=== PATIENT | male | born 1950 | race Two or more races ===

== ENCOUNTER 2017-03-19 05:53 | Inpatient (IN) | payer OTHER ==
[2017-03-19] VITALS (12 sets, daily range): BP systolic 116–155; BP diastolic 66–83
[~2017-03-19] VITALS: Ht 170.2 cm; Wt 81.6 kg
[2017-03-19] MEDS ORDERED: LR 1000ml 1,000 ML IVLG SCH (06:28)
--- NOTE | 2017-03-19 06:29 | Anethesia Preoperative Eval ---
Anesthesia Pre-op PMH/ROS General Date of Evaluation: Mar 19, 2017 Time of Evaluation: 07:26 Anesthesiologist: Dee ASA Score: ASA 2 Mallampati Score Class I : Soft palate, uvula, fauces, pillars visible Class II: Soft palate, uvula, fauces visible Class III: Soft palate, base of uvula visible Class IV: Only hard plate visible Mallampati Classification: Class II Surgeon: Chava Diagnosis: Neck Pain Surgical Procedure: ACDF C4-5, C5-6, C6-7 Anesthesia History: none Family History: no anesthesia problems Allergies: Coded Allergies: No Known Allergies (Unverified , 03/18/17) Medications: see eMAR Past Medical History Gastrointestinal/Genitourinary: Reports: other - Renolithiasis PSxH Narrative: Spine SX Anesthesia Pre-op Phys. Exam Physician Exam Last Vital Signs Date Time Temp Pulse Resp B/P (MAP) Pulse Ox O2 Delivery O2 Flow Rate FiO2 03/19/17 06:25 97.3 64 18 118/73 98 Room Air Constitutional: NAD Neurologic: CN 2-12 intact Cardiovascular: RRR Respiratory: CTA Gastrointestinal: S/NT/ND Airway Exam Mallampati Score: Class II MO: full ROM: limited Teeth: intact Anesthesia Pre-op A/P Risk Assessment & Plan Assessment: ASA 2 Plan: GA, BIS, GlideScope Status Change Before Surgery: No Pre-Antibiotics Dru Grams Ancef IV Given Within 1 Hr of Incision: Yes Time Given: 07:46 Kenneth Price MD Mar 19, 2017 06:29
[2017-03-19] MEDS ORDERED: Midazolam 2mg/2ml Inj IVP PRN (06:30)
[2017-03-19] MEDS ORDERED: LORazepam Inj 2mg/ml 1ml IV PRN (06:30)
[2017-03-19] MEDS ORDERED: DiphenhydrAMINE 50mg/ml Inj IVP PRN (06:30)
[2017-03-19] MEDS ORDERED: Ketorolac 60mg Inj IV PRN (06:30)
[2017-03-19] MEDS ORDERED: Ketorolac 30mg Inj IV PRN (06:30)
[2017-03-19] MEDS ORDERED: Atropine Inj 1mg/10ml Syr IV PRN (06:30)
[2017-03-19] MEDS ORDERED: Hydromorphone 0.5mg/0.5ml inj IVP PRN (06:30)
[2017-03-19] MEDS ORDERED: Norco 5mg/325mg tab ORAL PRN (06:30)
[2017-03-19] MEDS ORDERED: oxyCODONE HCL/Acetaminophen 5/325mg ORAL PRN (06:30)
[2017-03-19] MEDS ORDERED: HYDROcodone/Acetamin 7.5/325 tab ORAL PRN (06:30)
[2017-03-19] MEDS ORDERED: Labetalol 5mg/ml 20ml vial IV PRN (06:30)
[2017-03-19] MEDS ORDERED: Acetaminophen (Non formulary) 100 ML IV ONE (06:30)
[2017-03-19] MEDS ORDERED: fentaNYL 100 mcg/2 mL IV PRN (06:30)
[2017-03-19] MEDS ORDERED: NKM (06:32)
[2017-03-19] MEDS ORDERED: Thrombin 5000 units TOPIC ONE (07:15)
[2017-03-19] MEDS ORDERED: Thrombin 5000 units spray kit TOPIC ONE (07:15)
[2017-03-19] MEDS ORDERED: Ropivacaine 5mg/ml Vial 30ml INJ ONE (07:15)
[2017-03-19] MEDS ORDERED: Gelfoam Absorbable 1gm powder pkt TOPIC ONE (07:16)
[2017-03-19] MEDS ORDERED: Bacitracin 50000 Units Vial ONE ×2 (07:16→13:26)
--- NOTE | 2017-03-19 07:30 | Pre-Procedure Note/Attestation ---
Pre-Procedure Note/Attestation Complete Prior to Procedure Planned Procedure: not applicable Procedure Narrative: Anterior cervical discectomy and fusion C4/5, C5/6 and C6/7 with autograft, allograft and cervical plate with cages. 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 Attestation I attest that I discussed the nature of the procedure; its benefits; risks and complications; and alternatives (and the risks and benefits of such alternatives ), prior to the procedure, with the patient (or the patient's legal automotive leasing sales representative). I attest that, if there was a reasonable possibility of needing a blood transfusion, the patient (or the patient's legal automotive leasing sales representative) was given the [place] [employer] [facility] standardized written summary, pursuant to the Magdy Jm Blood Safety Act ([place] Health and Safety Code # 1645, as amended). I attest that I re-evaluated the patient just prior to the surgery and that there has been no change in the patient's H&P, except as documented below: NORM PRADO Mar 19, 2017 07:30
[2017-03-19] MEDS ORDERED: NS Irrig 1000ml ONE (08:00)
[2017-03-19] MEDS ORDERED: Zemuron 50mg/5ml Inj IV ONE (08:00)
[2017-03-19] MEDS ORDERED: fentaNYL 100 mcg/2 mL IV ONE (08:00)
[2017-03-19] MEDS ORDERED: Dexamethasone 4mg/ml vial ONE (08:00)
[2017-03-19] MEDS ORDERED: LR 1000ml ONE (08:00)
[2017-03-19] MEDS ORDERED: Midazolam 2mg/2ml Inj ONE (08:00)
[2017-03-19] MEDS ORDERED: Lidocaine 1% Plain 30 ml INJ ONE (08:00)
[2017-03-19] MEDS ORDERED: Sterile Water Irrig 1000ml IRRIG ONE (08:00)
--- NOTE | 2017-03-19 12:30 | Immediate Post-Op Evaluation ---
Immediate Post-Op Evalulation Immediate Post-Op Evalulation Procedure: ACDF C4-5, C5-6, C6-7 Date of Evaluation: Mar 19, 2017 Time of Evaluation: 14:30 IV Fluids: 1500 LR Blood Products: 0 Estimated Blood Loss: 75 Urinary Output: 350 Blood Pressure Systolic: 140 Blood Pressure Diastolic: 66 Pulse Rate: 102 Respiratory Rate: 16 O2 Sat by Pulse Oximetry: 100 Temperature (Fahrenheit): 98.8 Pain Score (1-10): 3 Nausea: No Vomiting: No Complications 0 Patient Status: awake, reacts, patent, extubated, none Hydration Status: adequate Dru Grams Ancef IV Given Within 1 Hr of Incision: Yes Time Given: 07:46 Kenneth Price MD Mar 19, 2017 12:30
[2017-03-19] MEDS ORDERED: Naloxone 0.4mg/ml Inj IVP PRN (13:45)
[2017-03-19] MEDS ORDERED: Acetaminophen 650 MG SUPP RECTAL PRN (13:45)
--- NOTE | 2017-03-19 13:59 | Brief Operative Note ---
Immediate Post Operative Note Operative Note Chief Complaint: Cervicalgia, Radicular arm symptomatology Pre-op Diagnosis: C spine stenosis C4/5, C5/6 and C6/7 with aggravation and symptomatic arm and neck symptoms. 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 Post-op Diagnosis: same as pre-op Surgeon: Matt Prado M.D. Ice Carver: Billy Viera PA-C Anesthesiologist: Juliane Price Anesthesia: general Specimen: yes Complications: none Fluids: 350cc urine Estimated Blood Loss: minimal Drains: none Implant(s) used?: Yes MATT PRADO Mar 19, 2017 13:59
[2017-03-19 14:39] LABS: HEMATOCRIT 43.4 % (42.0-52.0); HEMOGLOBIN 14.8 G/DL (14.2-18.0); MEAN CORPUSCULAR VOLUME 89 FL (80-99); PLATELET COUNT 281 K/UL (150-450); RED CELL DISTRIBUTION WIDTH 10.7 % (11.6-14.8); WHITE BLOOD COUNT 11.7 K/UL (4.8-10.8)
--- NOTE | 2017-03-19 16:05 | Diagnostic Imaging Report ---
Indication: Neck Pain Findings: Fluoroscopic views of the cervical spine were obtained. Localization followed by anterior fusion and multilevel discectomy involving C4-C7. 4 level anterior fusion plate noted. IMPRESSION: Intraoperative imaging
[2017-03-19] MEDS: D5 1/2NS w/KCl 20mEq 1,000 ML IV SCH ×2 (16:12→23:50)
[2017-03-19] MEDS: ceFAZolin sod 1 GM in D5W 55 ML IV SCH ×2 (16:12→23:44)
[2017-03-19] MEDS: Docusate 100mg cap ORAL SCH (16:28)
[2017-03-19] MEDS: HYDROmorphone 1mg/ml Carpuject IVP PRN (18:55)
[2017-03-19] MEDS: HYDROcodone/Acetamin 7.5/325 tab ORAL PRN (23:47)
[2017-03-20 00:14] VITALS: BP 133/87
[2017-03-20] MEDS: HYDROmorphone 1mg/ml Carpuject IVP PRN (01:27)
[2017-03-20 04:00] VITALS: BP 131/74
--- NOTE | 2017-03-20 07:28 | 48 Hour Post Anesthesia Eval ---
Post Anesthesia Evaluation Procedure: ACDF C4-5, C5-6, C6-7 Date of Evaluation: Mar 20, 2017 Time of Evaluation: 06:30 Blood Pressure Systolic: 131 0: 74 Pulse Rate: 77 Respiratory Rate: 18 Temperature (Fahrenheit): 97.3 O2 Sat by Pulse Oximetry: 96 Airway: patent Nausea: No Vomiting: No Pain Intensity: 2 Hydration Status: adequate Cardiopulmonary Status: at baseline Mental Status/LOC: patient returned to baseline Post-Anesthesia Complications: 0 Follow-up care needed: N/A - further care as per primary team ASTER BUNCH M.D. Mar 20, 2017 07:28
[2017-03-20 08:00] VITALS: BP 120/79
[2017-03-20] MEDS: ceFAZolin sod 1 GM in D5W 55 ML IV SCH (08:08)
[2017-03-20] MEDS: Docusate 100mg cap ORAL SCH ×2 (08:10→17:17)
[2017-03-20] MEDS: HYDROcodone/Acetamin 7.5/325 tab ORAL PRN ×3 (08:10→20:56)
--- NOTE | 2017-03-20 08:30 | Operative Note - Dictated ---
DATE OF OPERATION: 03/19/2017 PREOPERATIVE DIAGNOSES: 1. C4-C5, C5-C6, C6-C7 stenosis. 2. Clinical symptomatic radiculopathy. 3. Intractable arm and neck symptomatology. 4. Aggravation of cervical stenosis, status post injury. POSTOPERATIVE DIAGNOSES: 1. C4-C5, C5-C6, C6-C7 stenosis. 2. Clinical symptomatic radiculopathy. 3. Intractable arm and neck symptomatology. 4. Aggravation of cervical stenosis, status post injury. PROCEDURE PERFORMED: 1. Anterior cervical fusion, C4-C5, C5-C6, C6-C7. 2. Application of biomechanical spacer, C4-C5, C5-C6, C6-C7. 3. Autograft and allograft fusion, C4-C7. 4. Anterior cervical instrumentation, C4-C7, foraminotomy decompression, C5, C6, C7 bilaterally. 5. Microdissection and use of microscope 6. Interpretation of intraoperative neuromonitoring. SURGEON: Matt Larsen M.D. FOOTWEAR SALES REPRESENTATIVE: RAS Kang. ANESTHESIOLOGIST: Kenneth Price M.D. ANESTHESIA: General endotracheal intubation. IV FLUIDS: Per anesthesia records. ESTIMATED BLOOD LOSS: 100 mL. INDICATIONS FOR THE PROCEDURE: This is a pleasant gentleman with a significant cervical injury as well as a lumbar injury. The patient had failed a reasonable amount of conservative treatment and was indicated for surgery. Updated MRIs were obtained prior to surgery and demonstrated progression of the stenosis with persistent symptomatology. The patient had significant stenosis at C5-C6 and C6-C7. Updated MRI demonstrated also a C4-C5 motion segment that was stenotic on the right side. The patient was indicated for surgery. No guarantees of outcome were given. The patient had a significant spine injury in the cervical and lumbar spine, had aggravation of his pre-existing stenosis that necessitated the surgery. Risks and benefits of the surgery were discussed. Alternatives of the surgery were discussed. No guarantees of the outcome given. The patient was made aware of risks and benefits, including adjacent segment degeneration, future operation, failure of the surgery, pseudoarthrosis, neurologic complication, weakness, and no change in pain or increased pain. Other alternatives were discussed. All the risks and benefits were discussed. Informed consent was provided. No guarantees of outcome were given. The patient was preoperatively cleared, optimized for surgery, and taken to surgery. DESCRIPTION OF SURGERY: On the day of surgery, the patient was positively identified, subsequently taken to the operating room, and intubated by the anesthesiologist. Appropriate lines were inserted. Neuromonitoring was inserted and applied prior to surgery. The patient's neck was prepped and draped in the usual sterile fashion. A right-sided approach was undertaken and localizing x-ray confirmed the level and markings were made. The surgical pause was undertaken after prepping and draping and subsequently the patient was made in line with the transverse Traci's lines in the right side of the cervical spine. Cervical platysma was dissected sharply in line with the skin incision and subsequently Metzenbaum scissors were used for blunt dissection to the prevertebral fascia. The carotid pulsation was lateral. The medial structures were contralaterally retracted and hand-held retractors brought onto the field to mobilize the esophagus as well as the trachea. Subsequently, the longus coli was elevated from C4-C7 after localizing x-ray was taken and confirmed the level at C5-C6 as well as C4-C5 and C6-C7. Subsequently, discectomy was performed by applying [place] pin distraction at C4-C5 with self-retaining retractors with moderate collapse of the disc space and significant stenosis in the right side after the decompression was complete. The decompression was completed using Kerrisons and curettes. The C5 nerve roots were able to be traced distal, passed the foramen using small instruments such as a bear hook or a Microsect curette. Once the foraminotomy and decompression was completed without placing pressure on the neural structures during the decompression, under direct microscopic visualization, a 7 mm cage was applied with bone autograft and Fibergraft to a 1:1 ratio. Subsequently, the [place] pin and retractors were mobilized caudal to the C5-C6 level and in similar fashion, the decompression was completed. There was significant stenosis at this level. There was cord compression noted at this level as well as foraminal narrowing. There were adhesions onto the dura and it was difficult to decompress the dural sac, however, adequate decompression was noted with sequential dissection of the posterior longitudinal ligament. Foraminotomy was generous and subsequently a 7 mm cage was also applied here. In a similar fashion, the C6-C7 was decompressed with generous foraminotomy and a 6 mm cage was applied to this level with bone autograft and allograft in a 1:1 ratio. During the C5-C6 decompression, the left arm SSEP dropped greater than 50% and multiple steps were taken to assess for neurologic compromise. The blood pressure was maintained with a safe mean arterial pressure of greater than 60 to 65. Cooling measures were applied to the spinal cord. Any type of excessive distraction was not applied and [place] pin distraction was gentle and cautious. The left arm was mobilized and the arm grafts were assessed and the arm was mobilized gently and the leads were applied. The SSEPs were not changed in the lower extremities, the right side was normal, only the left upper extremity indicating possibly peripheral neuropathy. During the procedure, once the left arm was mobilized, and adjusted several times the neuromonitoring improved and had different fluctuations. At the end with several attempts to his arm, the neuromonitoring had improved and this was most likely a peripheral neuropathy due to positioning. However, care was taken in standard fashion to keep mobilizing the arm to prevent any excessive pressure on the lumbar nerve. Once the cages were applied, a cervical plate was contoured and fixed to the cervical spine in the most optimal position. The patient had unusual cervical contour and it was tedious to place the plate in the most orthogonal and ventral position of the cervical spine in midline. However, once the cervical plate was affixed and contoured and after several orthogonal x-rays with fluoroscopy, the 6 unicortical screws, which had excellent purchase were affixed with all locking mechanisms engaged and the wound was copiously irrigated. Final x-ray demonstrated good placement of the implants with no significant dorsal translation of the implants to prevent canal compromise and plate was affixed without compromising the adjacent disc spaces at C7-T1 and C3-C4. Lordotic plate was applied. The wound was copiously irrigated, no significant bleeding was noted. There were no tears or violation. There was none noted. There were no complications of the surgery. Neuromonitoring had improved by the final closure and the wound was copiously irrigated. The platysma was reapproximated with 3-0 Vicryl. Skin was reapproximated with 4-0 Monocryl. A cervical collar was applied and the patient was taken off the spine table with the spine lift team onto the gurney. The patient had awakened and postoperative neurologic tests demonstrated good neurologic function in the upper extremities and lower extremities with cursory neurologic assessment with the patient in recovery room. IMPLANTS: X-spine cervical plate, Fibergraft, allograft bone matrix. Matt Larsen M.D. DR: Onesimo JOB#: [id number] CC: JOI
[2017-03-20] MEDS: D5 1/2NS w/KCl 20mEq 1,000 ML IV SCH ×2 (08:52→17:11)
[2017-03-20 10:06] LABS: ANION GAP 8 mmol/L (5-15); BLOOD UREA NITROGEN 9 mg/dL (7-18); CALCIUM 8.4 MG/DL (8.5-10.1); CARBON DIOXIDE 27 MMOL/L (21-32); CHLORIDE 105 MMOL/L (98-107); CREATININE 0.9 MG/DL (0.55-1.30); POTASSIUM 4.1 MMOL/L (3.5-5.1); SODIUM 140 MMOL/L (136-145)
[2017-03-20 12:00] VITALS: BP 124/74
--- NOTE | 2017-03-20 14:17 | General Progress Note ---
Assessment/Plan Assessment/Plan Cervicalgia, Radicular arm symptomatology C spine stenosis C4/5, C5/6 and C6/7 with aggravation and symptomatic arm and neck symptoms. C4/5, C5/6, C6/7 Anterior cervical discectomy and fusion PLAN 1. incentive spirometry 2. DVT prophylaxis 3. PT evaluation and therapy 4. Hydration 5. Pain management 6. discharge once stable with outpatient follow up Subjective Allergies: Coded Allergies: No Known Allergies (Unverified , 03/18/17) Subjective care noted post op Objective Last 24 Hour Vital Signs Date Time Temp Pulse Resp B/P (MAP) Pulse Ox O2 Delivery O2 Flow Rate FiO2 03/20/17 12:00 97.5 64 20 124/74 96 03/20/17 08:00 97.5 63 18 120/79 95 03/20/17 07:28 77 18 96 03/20/17 04:15 Room Air 03/20/17 04:00 97.3 77 18 131/74 96 Room Air 03/20/17 00:14 97.6 88 20 133/87 98 Nasal Cannula 2.0 03/19/17 20:00 97.6 84 18 116/73 97 Nasal Cannula 2.0 03/19/17 16:31 98.2 84 18 141/82 100 Nasal Cannula 3.0 03/19/17 15:39 98.7 93 20 135/83 100 Nasal Cannula 3.0 03/19/17 15:19 98.6 03/19/17 15:00 98.6 91 20 146/69 98 Nasal Cannula 3.0 03/19/17 14:44 95 20 153/71 98 Nasal Cannula 3.0 03/19/17 14:25 92 20 149/68 99 Nasal Cannula 3.0 Intake and Output 03/19/17 03/20/17 19:00 07:00 Intake Total 2025 ml 1740 ml Output Total 825 ml 400 ml Balance 1200 ml 1340 ml Intake Oral 150 ml 240 ml IV Total 1875 ml 1500 ml Output Urine Total 750 ml 400 ml Estimated Blood Loss 75 ml Laboratory Tests 03/20/17 07:15: Sodium Level 140, Potassium Level 4.1, Chloride Level 105, Carbon Dioxide Level 27, Anion Gap 8, Blood Urea Nitrogen 9, Creatinine 0.9, Estimat Glomerular Filtration Rate > 60, Glucose Level 110H, Calcium Level 8.4L Height (Feet): 5 Height (Inches): 7.00 Weight (Pounds): 180 Objective WDWN NAD clear breath sounds bilaterally without rhonchi or wheeze [id number] without MRG NABS nontender no HSM no CCE nonfocal TANISHA PERES Mar 20, 2017 14:17
[2017-03-20 16:00] VITALS: BP 122/77
[2017-03-20 20:00] VITALS: BP 138/78
[2017-03-21] VITALS: BP 129/78
[2017-03-21] MEDS: D5 1/2NS w/KCl 20mEq 1,000 ML IV SCH ×3 (01:05→17:00)
[2017-03-21 04:00] VITALS: BP 143/85
[2017-03-21 08:00] VITALS: BP 138/81
[2017-03-21] MEDS: HYDROcodone/Acetamin 7.5/325 tab ORAL PRN ×2 (08:08→16:18)
[2017-03-21] MEDS: Docusate 100mg cap ORAL SCH ×2 (08:24→17:53)
--- NOTE | 2017-03-21 08:25 | General Progress Note ---
Assessment/Plan Assessment/Plan Cervicalgia, Radicular arm symptomatology C spine stenosis C4/5, C5/6 and C6/7 with aggravation and symptomatic arm and neck symptoms. C4/5, C5/6, C6/7 Anterior cervical discectomy and fusion PLAN 1. incentive spirometry 2. DVT prophylaxis 3. PT evaluation and therapy 4. Hydration 5. Pain management 6. discharge pending spine clearance Subjective Allergies: Coded Allergies: No Known Allergies (Unverified , 03/18/17) Subjective care noted post op taking po Objective Last 24 Hour Vital Signs Date Time Temp Pulse Resp B/P (MAP) Pulse Ox O2 Delivery O2 Flow Rate FiO2 03/21/17 08:00 98.2 78 19 138/81 95 03/21/17 04:00 98.1 80 19 143/85 93 03/21/17 00:00 96.8 78 18 129/78 95 03/20/17 20:00 98.8 84 18 138/78 95 03/20/17 16:00 97.5 65 20 122/77 95 03/20/17 12:00 97.5 64 20 124/74 96 Intake and Output 03/20/17 03/21/17 19:00 07:00 Intake Total 1660 ml 1650 ml Balance 1660 ml 1650 ml Intake Oral 480 ml 150 ml IV Total 1180 ml 1500 ml # Voids 3 5 # Bowel Movements 1 Height (Feet): 5 Height (Inches): 7.00 Weight (Pounds): 180 Objective WDWN NAD clear breath sounds bilaterally without rhonchi or wheeze [id number] without MRG NABS nontender no HSM no CCE nonfocal TANISHA PERES Mar 21, 2017 08:25
[2017-03-21 12:00] VITALS: BP 116/67
[2017-03-21 16:00] VITALS: BP 140/84
[2017-03-21 20:49] VITALS: BP 127/72
[2017-03-22] VITALS: BP 143/76
[2017-03-22] MEDS: D5 1/2NS w/KCl 20mEq 1,000 ML IV SCH ×2 (00:30→08:14)
[2017-03-22] MEDS: HYDROcodone/Acetamin 7.5/325 tab ORAL PRN ×3 (00:37→10:20)
[2017-03-22 04:00] VITALS: BP 148/77
[2017-03-22] MEDS: Docusate 100mg cap ORAL SCH (08:14)
--- NOTE | 2017-03-22 08:27 | General Progress Note ---
Assessment/Plan Assessment/Plan Cervicalgia, Radicular arm symptomatology C spine stenosis C4/5, C5/6 and C6/7 with aggravation and symptomatic arm and neck symptoms. C4/5, C5/6, C6/7 Anterior cervical discectomy and fusion PLAN 1. incentive spirometry 2. DVT prophylaxis 3. PT evaluation and therapy 4. Hydration 5. Pain management 6. discharge today Subjective Allergies: Coded Allergies: No Known Allergies (Unverified , 03/18/17) Subjective care noted post op taking po Objective Last 24 Hour Vital Signs Date Time Temp Pulse Resp B/P (MAP) Pulse Ox O2 Delivery O2 Flow Rate FiO2 03/22/17 04:00 97.4 74 20 148/77 96 03/22/17 00:00 95 Room Air 03/22/17 00:00 97.7 72 19 143/76 94 03/21/17 20:49 97.9 66 17 127/72 94 03/21/17 20:00 94 Room Air 03/21/17 17:17 98.6 03/21/17 16:00 98 Room Air 03/21/17 16:00 98.9 79 19 140/84 98 03/21/17 12:00 98.6 69 19 116/67 95 03/21/17 12:00 95 Room Air Intake and Output 03/21/17 03/22/17 19:00 07:00 Intake Total 2110.0 ml 1637.5 ml Balance 2110.0 ml 1637.5 ml Intake Oral 850 ml 200 ml IV Total 1260.0 ml 1437.5 ml # Voids 1 3 Height (Feet): 5 Height (Inches): 7.00 Weight (Pounds): 180 Objective WDWN NAD clear breath sounds bilaterally without rhonchi or wheeze [id number] without MRG NABS nontender no HSM no CCE nonfocal TANISHA PREES Mar 22, 2017 08:26
[2017-03-22 08:48] VITALS: BP 114/76
[2017-03-22] MEDS ORDERED: NORCO 5-325 TA1 EAC1 ORAL (09:21)
--- NOTE | 2017-03-25 07:57 | Discharge Summary ---
Discharge Summary Hospital Course Date of Admission Mar 19, 2017 at 05:53 Date of Discharge Mar 22, 2017 at 10:20 Admitting Diagnosis C spine stenosis C4/5, C5/6 and C6/7 with aggravation and symptomatic arm and neck symptoms. Reason for Hospitalization: elective surgery SCOT Perdomo is a 66 year old male who was admitted on Mar 19, 2017 at 05:53 for Cervical Radiculopathy and elective surgery Consultations dr Gracia - IM Procedures s/p 03/19/[address] Larsen 1. Anterior cervical fusion, C4-C5, C5-C6, C6-C7. 2. Application of biomechanical spacer, C4-C5, C5-C6, C6-C7. 3. Autograft and allograft fusion, C4-C7. 4. Anterior cervical instrumentation, C4-C7, foraminotomy decompression, C5, C6, C7 bilaterally. 5. Microdissection 6. Interpretation of intraoperative neuromonitoring. Hospital Course s/p surgery course of recovery uneventful initially IVF n/v intact pain management dressing C/D/I IS at the bedside , encouraged to use while in the bed ambulated with PT first, then independently DVT prophylaxis voided freely diet slowly advanced to soft as tolerated cervical collar as instructed stable for discharge fup as outpatient with surgeon as advised FINAL DIAGNOSIS 1. C4-C5, C5-C6, C6-C7 stenosis. 2. Clinical symptomatic radiculopathy. 3. Intractable arm and neck symptomatology. 4. Aggravation of cervical stenosis, status post injury. 5. s/p Anterior cervical discectomy and fusion C4/5, C5/6, C6/7 Discharge Medications Continued Medications: Hydrocodone Bit/Acetaminophen 5-325* (Hanson 5-325 Tablet*) 1 Each Tablet 1 TAB ORAL Q4H PRN for For Pain, TAB Hydrocodone Bit/Acetaminophen 5-325* (Hanson 5-325 Tablet*) 1 Each Tablet 2 TAB ORAL Q4H PRN for For Pain, TAB Discharge Condition Upon Discharge: stable Discharge Disposition Patient was discharged to Home (01) Discharge Diagnoses: Discharge Instructions Discharge Instructions Special Instructions I have been assigned to complete a D/C Summary on this account. I was not involved in the patient management Radha Cole NP ([place]) Mar 25, 2017 07:57
== END 2017-03-22 10:20 | disposition home or self-care (01) | DRG 473 ==
LOC: SDSOVERFLO 05:53 → 3E 15:44
PROC: 0RG20A0 Fusion of 2 or more Cervical Vertebral Joints with Interbody Fusion Device, Anterior Approach, Anterior Column, Open Approach (ICD-10-PCS; principal; 2017-03-19 07:30)
PROC: 0RG2070 Fusion of 2 or more Cervical Vertebral Joints with Autologous Tissue Substitute, Anterior Approach, Anterior Column, Open Approach (ICD-10-PCS; principal; 2017-03-19 07:30)
PROC: 4A11X4G Monitoring of Peripheral Nervous Electrical Activity, Intraoperative, External Approach (ICD-10-PCS; principal; 2017-03-19 07:30)
DX: M48.02 Spinal stenosis, cervical region (principal); M54.12 Radiculopathy, cervical region; V49.9XXS Car occupant (driver) (passenger) injured in unspecified traffic accident, sequela
CPT/HCPCS: 36415; 72040; 76001; 80048; 85007; 85025; 86850; 86900; 86901; 87081; 94003; 94150; J2250; J2405